=== PATIENT | female | born 1970 | race Caucasian/White ===

== ENCOUNTER 2019-10-02 10:56 | Emergency (ER) | payer OTHER ==
[~2019-10-02] VITALS: Ht 162.6 cm; Wt 81.7 kg
[2019-10-02] MEDS ORDERED: Prozac40 MG PO (11:27)
[2019-10-02] MEDS ORDERED: GABA300 PO (11:27)
[2019-10-02] MEDS ORDERED: Abilify2 MG PO (11:27)
[2019-10-02] MEDS ORDERED: Sudogest30 MG PO (11:30)
[2019-10-02] MEDS ORDERED: CEPH500 PO (11:30)
[2019-10-02] MEDS ORDERED: Flonase 0.05% N16 GM (11:30)
[2019-10-02] MEDS ORDERED: Mupirocin22 GM TOP (11:30)
== END 2019-10-02 11:43 | disposition home or self-care (01) ==
LOC: ER 10:56
DX: L03.211 Cellulitis of face (principal); J06.9 Acute upper respiratory infection, unspecified
CPT/HCPCS: 87070; 87077; 87147; 87186; 87205; 99283

== ENCOUNTER 2019-11-06 21:25 | Emergency (ER) | payer OTHER ==
[~2019-11-06] VITALS: Ht 162.6 cm; Wt 81.7 kg
[~2019-11-06 21:25] MED LIST: Abilify2 MG PO; CEPH500 PO; Flonase 0.05% N16 GM; GABA300 PO; Mupirocin22 GM TOP; Prozac40 MG PO; Sudogest30 MG PO
[2019-11-06 22:22] LABS: BASOPHILS ABSOLUTE AUTO 0.08 K/mm3 (0.00-0.23); BASOPHILS PERCENT AUTO 1 % (0-2); EOSINOPHILS ABSOLUTE AUTO 0.17 K/mm3 (0.00-0.68); EOSINOPHILS PERCENT AUTO 2 % (0-6); Hematocrit 42.8 % (33.0-51.0); Hemoglobin 14.1 g/dL (11.5-16.0); IMMATURE GRAN ABSOLUTE AUTO 0.02 K/mm3 (0.00-0.10); IMMATURE GRAN PERCENT AUTO 0 % (0-1); LYMPHOCYTES ABSOLUTE AUTO 2.77 K/mm3 (0.84-5.20); LYMPHOCYTES PERCENT AUTO 32 % (21-46); MONOCYTES ABSOLUTE AUTO 0.98 K/mm3 (0.16-1.47); MONOCYTES PERCENT AUTO 11 % (4-13); Mean Corpuscular HGB 32.4 pg (26.0-34.0); Mean Corpuscular HGB Conc 32.9 g/dL (31.5-36.5); Mean Corpuscular Volume 98 fL (80-100); Mean Platelet Volume 9.9 fL (9.1-12.4); NEUTROPHILS PERCENT AUTO 53 % (41-73); Platelet Count 328 K/mm3 (150-400); RDW Coefficient Variation 13.2 % (11.7-14.2); RDW Standard Deviation 48.2 fL (35.1-46.3); Red Blood Cell Count 4.35 M/mm3 (3.80-5.20); White Blood Cell Count 8.62 K/mm3 (4.00-11.30)
[2019-11-06 22:40] LABS: Acetaminophen, Random <2.0 ug/mL (10.0-30.0); Alanine Aminotransfer (ALT/SGP 33 U/L (12-78); Albumin, Blood 2.9 g/dL (3.4-5.0); Albumin/Globulin Ratio 0.6 (0.8-1.8); Alk Phos 123 U/L (50-136); Anion Gap 5 mmol/L (6-16); Aspartate Aminotrans (AST/SGOT 24 U/L (12-37); Bilirubin, Total 0.3 mg/dL (0.1-1.0); Blood Urea Nitrogen 11 mg/dL (8-24); Bun/Creatinine Ratio 15.8 (12.0-20.0); CO2, Blood 28 mmol/L (21-32); Calcium, Blood 8.6 mg/dL (8.5-10.1); Chloride, Blood 108 mmol/L (98-108); Ethanol (Alcohol), Blood, Med 84 mg/dL; Glomerular Filtration Rate >60 (60-); Glucose, Blood 99 mg/dL (70-99); Potassium, Blood 3.4 mmol/L (3.5-5.5); Salicylate 1.8 mg/dL (2.8-20.0); Sodium, Blood 141 mmol/L (136-145); Total Protein, Blood 7.9 g/dL (6.4-8.2)
[2019-11-06] MEDS ORDERED: CHLO25 PO (22:54)
[2019-11-07 00:34] LABS: Source, Urine Clean Catch
[2019-11-07 00:38] LABS: Bilirubin, Urine Neg (Neg); Blood, Urine Neg (Neg); Glucose Qualitative, Urine Neg (Neg); Ketones, Urine Neg (Neg); Leukocyte Esterase, Urine 1+ (Neg); Nitrite, Urine Neg (Neg); Protein, Urine Neg (Neg); Specific Gravity, Urine 1.015 (1.003-1.022); Urobilinogen, Urine NORM (Normal); pH, Urine 6.5 (5.0-8.0)
[2019-11-07 00:42] LABS: Appearance, Urine Clear (Clear); Color, Urine Yellow (P-Yellow)
[2019-11-07 00:48] LABS: Bacteria Mod /hpf; Red Blood Cells, Urine Not Seen /hpf (0-2); Squamous Epithelial Cells Few /hpf (Few)
[2019-11-07 00:57] LABS: U Amphetamine Screen DETECTED; U Barbituate Screen Not Detected; U Benzodiazapine Screen Not Detected; U Buprenorphine Screen Not Detected; U Cannabinoids Screen DETECTED; U Cocaine Screen Not Detected; U Methadone Screen Not Detected; U Methamphetamine Screen Not Detected; U Opiates Screen Not Detected; U Oxycodone Screen Not Detected; U Phencyclidine Screen Not Detected; U Propoxyphene Screen Not Detected
[2019-11-07] MEDS ORDERED: Macrobid 100 M100 MG PO (00:59)
== END 2019-11-07 01:15 | disposition home or self-care (01) ==
LOC: ER 21:25
PROVIDERS: Physician Assistant
DX: N39.0 Urinary tract infection, site not specified (principal); F10.10 Alcohol abuse, uncomplicated; F15.10 Other stimulant abuse, uncomplicated; Y90.4 Blood alcohol level of 80-99 mg/100 ml
CPT/HCPCS: 36415; 80053; 81001; 81025; 85025; 87077; 87086; 87186; 96360; 96361; 99284-25; G0480; J7030

== ENCOUNTER 2020-06-27 18:49 | Emergency (ER) | payer OTHER ==
[~2020-06-27] VITALS: Ht 162.6 cm; Wt 81.7 kg
[~2020-06-27 18:49] MED LIST changes: +CHLO25 PO; +GABAPENTIN600 MG PO; +IBUP800 PO; +Macrobid 100 M100 MG PO; +OMEP20ER PO; +PRED20 PO; +Robaxin-750750 MG PO
[2020-06-27] MEDS ORDERED: Percocet 10-321 EACH PO (20:53)
== END 2020-06-27 21:06 | disposition home or self-care (01) ==
LOC: ER 18:49
DX: M54.42 Lumbago with sciatica, left side (principal); M54.17 Radiculopathy, lumbosacral region; F17.210 Nicotine dependence, cigarettes, uncomplicated; Z79.52 Long term (current) use of systemic steroids; Z79.899 Other long term (current) drug therapy
CPT/HCPCS: 72100; 96372; 99283-25; A9270; J1170